=== PATIENT | male | born 1995 | race Two or more races ===

== ENCOUNTER 2018-02-02 16:11 | Emergency (ER) | payer MEDICAID ==
[~2018-02-02] VITALS: Ht 185.4 cm; Wt 113.4 kg
[2018-02-02 16:39] VITALS: BP 141/82
== END 2018-02-02 17:49 | disposition home or self-care (01) ==
LOC: ER 16:11
DX: N48.89 Other specified disorders of penis (principal)
CPT/HCPCS: 76870

== ENCOUNTER 2018-12-19 04:41 | Emergency (ER) | payer MEDICAID ==
[~2018-12-19] VITALS: Ht 185.4 cm; Wt 108.9 kg
[2018-12-19 04:58] VITALS: BP 140/99
== END 2018-12-19 08:02 | disposition left against medical advice (07) ==
LOC: ER 04:41
DX: M54.5 Low back pain (principal); M54.6 Pain in thoracic spine; Z53.21 Procedure and treatment not carried out due to patient leaving prior to being seen by health care provider

== ENCOUNTER 2021-10-20 04:21 | Emergency (ER) | payer MEDICAID ==
[~2021-10-20] VITALS: Ht 185.4 cm; Wt 109.3 kg
[2021-10-20] MEDS ORDERED: ONDANSETRON HCL 4 MG/2 ML VIAL IV ONE (07:15)
[2021-10-20] MEDS ORDERED: SODIUM CHLORIDE 0.9% 1,000 ML IV ONE (07:15)
[2021-10-20] MEDS ORDERED: HYDROmorphone HCL 2 MG/ML VL IV ONE (07:15)
[2021-10-20] MEDS ORDERED: ETOMIDATE (2MG/ML) 20ML VIAL IV ONE (08:30)
[2021-10-20] MEDS ORDERED: TETANUS-DIPTH-ACEL PERTUSSIS 0.5ML SYR Tdap IM ONE (08:45)
[2021-10-20] MEDS ORDERED: NEOMYCIN-BACITRACIN-POLYM 15GM TOP OINT TOP ONE (08:45)
[2021-10-20 09:09] VITALS: BP 123/85
== END 2021-10-20 11:51 | disposition home or self-care (01) ==
LOC: ER 04:21
DX: S82.842A Displaced bimalleolar fracture of left lower leg, initial encounter for closed fracture (principal); W18.09XA Striking against other object with subsequent fall, initial encounter; Y93.89 Activity, other specified; Y92.89 Other specified places as the place of occurrence of the external cause; Y99.8 Other external cause status
CPT/HCPCS: 27808; 73600; 90471; 90715; 96361; 96374; 96375; 99285; J1170; J2405; J7030

== ENCOUNTER 2021-10-25 15:38 | Emergency (ER) | payer MEDICAID ==
[~2021-10-25] VITALS: Ht 185.4 cm; Wt 108.9 kg
[2021-10-25 16:56] VITALS: BP 146/94
== END 2021-10-25 17:28 | disposition home or self-care (01) ==
LOC: ER 15:41
DX: S82.842D Displaced bimalleolar fracture of left lower leg, subsequent encounter for closed fracture with routine healing (principal); F12.10 Cannabis abuse, uncomplicated; X58.XXXD Exposure to other specified factors, subsequent encounter
CPT/HCPCS: 29515